=== PATIENT | female | born 1955 | race African-American/Black ===

== ENCOUNTER → 2017-01-29 | Outpatient (CLI) | payer BC, OTHER ==
[~2017-01-29] MED LIST: FUROSEMIDE 20 M20 M1 PO; KLOR-CON 10 ER10 MEQ PO; MULTI-VITAMIN1 EAC5 PO; PHENERGAN 25 MG25 M1 PO; PHENERGAN25 MG RECTAL; PREDNISONE 5 MG5 M1 PO; ZOFRAN 4 MG ORAL4 MG PO; ZYRTEC10 M2 PO
== END ==
LOC: ULTRA 09:19
DX: R79.89 Other specified abnormal findings of blood chemistry (principal); R06.02 Shortness of breath; M79.89 Other specified soft tissue disorders

== ENCOUNTER → 2017-05-03 | Outpatient (CLI) | payer BC, OTHER | LOC: RAD 11:09 | DX: D86.9 Sarcoidosis, unspecified (principal); R06.02 Shortness of breath ==

== ENCOUNTER → 2017-12-18 | Outpatient (CLI) | payer BC, OTHER | LOC: RAD 12:04 | DX: J98.4 Other disorders of lung (principal); M41.84 Other forms of scoliosis, thoracic region; D86.9 Sarcoidosis, unspecified ==